=== PATIENT | female | born 1960 | race Caucasian/White ===

== ENCOUNTER → 2024-04-19 15:14 | Outpatient (REF) | payer BC, SELFPAY | LOC: HWWDC 15:14 | PROVIDERS: ATTENDING PHYSICIAN Internal Medicine | DX: Z12.31 Encounter for screening mammogram for malignant neoplasm of breast (principal) | CPT/HCPCS: 77063; 77067 ==

== ENCOUNTER → 2024-05-10 13:41 | Outpatient (REF) | payer BC, SELFPAY | LOC: HWRAD 13:41 | PROVIDERS: ATTENDING PHYSICIAN Physician Assistant; FAMILY PHYSICIAN Internal Medicine | DX: E04.2 Nontoxic multinodular goiter (principal) | CPT/HCPCS: 76536 ==

== ENCOUNTER → 2024-10-01 06:26 | Day surgery (SDC) | payer BC, SELFPAY ==
[2024-10-01 10:07] LABS: Glucose - Point of Care 151 mg/dl (70-99)
== END ==
LOC: GI 06:26
PROVIDERS: ATTENDING PHYSICIAN Internal Medicine Gastroenterology; FAMILY PHYSICIAN Internal Medicine
DX: Z12.11 Encounter for screening for malignant neoplasm of colon (principal); D12.4 Benign neoplasm of descending colon; K57.30 Diverticulosis of large intestine without perforation or abscess without bleeding; K64.8 Other hemorrhoids; K29.50 Unspecified chronic gastritis without bleeding; K22.89 Other specified disease of esophagus; R13.10 Dysphagia, unspecified; Z86.0100 Personal history of colon polyps, unspecified
CPT/HCPCS: 45380; 43239; 88305; 82962; 88342

== ENCOUNTER 2024-12-28 06:11 | Day surgery (SDC) | payer OTHER, SELFPAY ==
[2024-12-28 08:03] LABS: Glucose - Point of Care 252 mg/dl (70-99)
== END 2024-12-28 09:29 | disposition home or self-care (01) ==
LOC: GI 06:11
PROVIDERS: ATTENDING PHYSICIAN Internal Medicine Gastroenterology
DX: K20.0 Eosinophilic esophagitis (principal); K29.50 Unspecified chronic gastritis without bleeding; K22.89 Other specified disease of esophagus; K22.2 Esophageal obstruction; K44.9 Diaphragmatic hernia without obstruction or gangrene; K31.89 Other diseases of stomach and duodenum; R12 Heartburn
CPT/HCPCS: 43239; 88305; 82962; 88342

== ENCOUNTER → 2025-08-30 13:55 | Outpatient (REF) | payer OTHER, SELFPAY | LOC: HWRAD 13:55 | PROVIDERS: ATTENDING PHYSICIAN Physician Assistant; FAMILY PHYSICIAN Internal Medicine | DX: E04.2 Nontoxic multinodular goiter (principal) | CPT/HCPCS: 76536 ==

== ENCOUNTER → 2025-10-11 14:04 | Outpatient (REF) | payer OTHER, SELFPAY | LOC: HWWDC 14:04 | PROVIDERS: ATTENDING PHYSICIAN Internal Medicine | DX: Z12.31 Encounter for screening mammogram for malignant neoplasm of breast (principal) | CPT/HCPCS: 77063; 77067 ==

== ENCOUNTER → 2025-10-28 09:51 | Outpatient (REF) | payer OTHER, SELFPAY | LOC: WDC 09:51 | PROVIDERS: ATTENDING PHYSICIAN Internal Medicine | DX: R92.8 Other abnormal and inconclusive findings on diagnostic imaging of breast (principal) | CPT/HCPCS: 77065 ==